=== PATIENT | male | born 1940 | race Caucasian/White ===

== ENCOUNTER 2019-05-24 08:44 | Day surgery (SDC) | payer MEDICARE ==
[2019-05-19 09:43] LABS: ABSOLUTE BASOPHILS # (AUTO) 0.1 10^3/uL (0.0-0.2); ABSOLUTE EOSINOPHILS # (AUTO) 0.1 10^3/uL (0.0-0.6); ABSOLUTE LYMPHOCYTES (AUTO) 0.9 10^3/uL (0.5-4.7); ABSOLUTE MONOCYTES (AUTO) 0.7 10^3/uL (0.1-1.4); ABSOLUTE NEUT (AUTO) 3.9 10^3/uL (1.7-8.2); EOSINOPHILS % (AUTO) 1.6 % (0-6); HEMATOCRIT 47.8 % (37.9-51.0); HEMOGLOBIN 16.4 g/dL (13.5-17.0); LYMPHOCYTES % (AUTO) 16.7 % (13-45); MEAN CORPUSCULAR HEMOGLOBIN 35.9 pg (27.0-33.4); MEAN CORPUSCULAR HGB CONC 34.4 g/dL (32.0-36.0); MEAN CORPUSCULAR VOLUME 105 fl (80-97); MONOCYTES % (AUTO) 11.9 % (3-13); PLATELET COUNT 220 10^3/uL (150-450); RED BLOOD COUNT 4.57 10^6/uL (4.35-5.55); RED CELL DISTRIBUTION WIDTH 14.5 % (11.5-14.0); SEGMENTED NEUTROPHILS % (AUTO) 68.8 % (42-78); TOTAL CELLS COUNTED % (AUTO) 100 %; WHITE BLOOD COUNT 5.7 10^3/uL (4.0-10.5)
[2019-05-19 09:45] LABS: APPEARANCE,URINE CLEAR; BILIRUBIN,URINE NEGATIVE (NEGATIVE); COLOR,URINE YELLOW; GLUCOSE, URINE NEGATIVE (NEGATIVE); KETONES,URINE NEGATIVE (NEGATIVE); LEUKOCYTE ESTERASE,URINE NEGATIVE (NEGATIVE); NITRITE,URINE NEGATIVE (NEGATIVE); PROTEIN,URINE NEGATIVE (NEGATIVE); URINE SPECIFIC GRAVITY 1.012
[2019-05-19 09:47] LABS: INTERNATIONAL RATION (INR) 1.92; PROTHROMBIN TIME 22.3 SEC (11.4-15.4)
[2019-05-19 09:48] LABS: PARTIAL THROMBOPLASTIN TIME 44.5 SEC (23.5-35.8)
--- NOTE | 2019-05-19 13:06 | EKG REPORT ---
SEVERITY:- ABNORMAL ECG - ATRIAL FIBRILLATION RUN OF VENTRICULAR PREMATURE COMPLEXES LOW VOLTAGE IN FRONTAL LEADS BORDERLINE T ABNORMALITIES, INFERIOR LEADS : Confirmed by: Pako Trevino MD 19-May-2019 13:04:54
[2019-05-23 11:43] LABS: ANION GAP 9 (5-19); BLOOD UREA NITROGEN 24 mg/dL (7-20); CALCIUM 9.7 mg/dL (8.4-10.2); CARBON DIOXIDE 28 mmol/L (22-30); CHLORIDE 105 mmol/L (98-107); GLUCOSE 57 mg/dL (75-110); POTASSIUM 4.5 mmol/L (3.6-5.0)
[~2019-05-24 08:44] MED LIST: CEFAZOLIN SODIUM 1 GM in DEXTROSE 5%-WATER 50 ML IV PRN; CLINDAMYCIN 300 MG/D5W RTU 300 MG/50 ML RTUPB IV ONE; CLINDAMYCIN 300 MG/D5W RTU 300 MG/50 ML RTUPB IV PRN; LACTATED RINGERS 1000 ML IV PRN; LIDOCAINE 0.5% INJ-PF (5 MG/ML) 50 ML SDV SUBCUT PRN
[2019-05-24] MEDS ORDERED: MIDAZOLAM 2 MG/2 ML INJ ONE (09:32)
[2019-05-24] MEDS ORDERED: PROPOFOL INJ 200 MG/20 ML VIAL IV ONE ×2 (09:32→11:30)
[2019-05-24] MEDS ORDERED: FENTANYL CITRATE INJ/PF 100 MCG/2 ML AMPUL ONE (09:32)
[2019-05-24] MEDS ORDERED: ONDANSETRON HCL INJ/PF 4 MG/2 ML SDV ONE (09:32)
[2019-05-24] MEDS ORDERED: LIDOCAINE 1% INJ-PF (10 MG/ML) 30 ML SDV ONE ×2 (10:12→11:03)
[2019-05-24] MEDS ORDERED: SODIUM BICARBONATE 8.4% INJ 50 MEQ/50 ML DISP.SYRIN ONE ×2 (10:13→11:04)
[2019-05-24 10:25] LABS: INTERNATIONAL RATION (INR) 1.06; PROTHROMBIN TIME 13.9 SEC (11.4-15.4)
[2019-05-24 10:26] LABS: PARTIAL THROMBOPLASTIN TIME 32.5 SEC (23.5-35.8)
[2019-05-24] MEDS ORDERED: METHYLPREDNISOLONE ACETATE INJ 40 MG/1 ML ML ONE (11:03)
[2019-05-24] MEDS ORDERED: BACITRACIN ZINC OINTMENT 15 GM ONE (11:04)
[2019-05-24] MEDS ORDERED: MORPHINE SULFATE 10 MG/ML INJ IV PRN (12:01)
[2019-05-24] MEDS ORDERED: DIPHENHYDRAMINE HCL 50 MG/ML VIAL IV PRN (12:01)
[2019-05-24] MEDS ORDERED: FENTANYL CITRATE INJ/PF 100 MCG/2 ML AMPUL IV PRN ×3 (12:01)
[2019-05-24] MEDS ORDERED: OXYCODONE-ACETAMINOPHEN 5-325 MG TABLET PO PRN ×3 (12:01→13:13)
[2019-05-24] MEDS ORDERED: MEPERIDINE HCL/PF INJ 25 MG/1 ML DISP.SYRIN IV PRN (12:01)
--- NOTE | 2019-05-24 12:32 | Operative Report ---
Operative Report DATE OF SURGERY: 05/24/19 PREOPERATIVE DIAGNOSIS: L2 vertebral compression fracture POSTOPERATIVE DIAGNOSIS: L2 vertebral compression fracture OPERATION: Kyphoplasty L2 SURGEON: DOROTHY EL ACID CHANGER: SHELLY FRANKEL ANESTHESIA: LMAC TISSUE REMOVED OR ALTERED: None COMPLICATIONS: None ESTIMATED BLOOD LOSS: 5 cc INTRAOPERATIVE FINDINGS: No complications PROCEDURE: DESCRIPTION OF PROCEDURE: The patient was taken to the preoperative suite, informed consent was obtained from the patient, and all appropriate preoperative documentation was completed. Intravenous access was obtained and the patient was moved to the operating room. A time out was performed with the patient, nurse and attending physician present in the operative suite. Prophylactic antibiotics were administered in the form of 300 mg of clindamycin preoperatively and less than one hour before incision. The patient was positioned prone and all pressure points were checked while the patient was awake. Monitored anesthesia care was subsequently induced by the anesthesia care provider. The L2 vertebral body was identified with fluoroscopic guidance. The skin overlying the target area was prepped with chlorhexidine x 3 and sterilely draped in the usual fashion maintaining meticulous sterile technique. Local anesthesia was obtained with a total of 5 ml of preservative free 1% Lidocaine. A stab incision was made 1 cm lateral of the lateral border of right pedicle at the level of the target vertebral body. A 10 gauge trocar was introduced safely through the right pedicle just inside the target vertebral body for a unipedicular approach. The stylet of the trocar was removed and a working cannula was left in place. A drill was then inserted through the right working cannula, advanced under lateral fluoroscopic imaging, to a point just posterior to the anterior v ertebral body wall. The drill was removed and balloon was inserted through the working cannula stopping posterior to the anterior vertebral body wall. The balloon was inflated with radiopaque contrast dye in .5 mL increments. Lateral fluoroscopic images were obtained to confirm balloon inflation did not breach the superior or inferior endplates. A/P fluoroscopic images were obtained periodically to confirm that the lateral betancur were not breached. Inflation of the balloon continued until the desired fracture reduction was achieved. PMMA bone cement was prepared and filled in bone filler cannula. The balloon was deflated and removed. The cement filled cannula was inserted through the working cannula to the anterior portion of the vertebral body. The cement cannula plungers were used to push .2 mL increments of cement into the vertebral body. Lateral fluoroscopic images were obtained at .2 mL increments to verify that the cement did not extravasate. A/P fluoroscopic views were taken at incrementally to verify that the cement did not extravasate laterally. A total of 4 ML of bone cement instilled in unipedicular approach. The bone cement cannula was removed. Lateral fluoroscopic imaging confirmed that no cement migrated posteriorly up the working cannula. The working cannula was removed and pressure was applied to the incision sites until adequate hemostasis was assured. The incision site was then reapproximated with steristrips covered with a sterile adhesive bandage. > COUNTS: > Final sponge and needle counts were correct. > > OPERATING ROOM DISPOSITION: > The patient was taken from the operating room to the recovery room in stable condition. > > FINAL DISPOSITION: > The patient was discharged from the PACU after appropriate discharge criteria were met. > > FOLLOW UP: > The patient is to follow up in clinic in 7 to 10 days.
[2019-05-24] MEDS ORDERED: CLINDAMYCIN PHOSPHATE INJ 300 MG/2 ML SDV ONE (13:07)
[2019-05-24 15:27] VITALS: BP 125/78
--- NOTE | 2019-05-24 17:37 | RADIOLOGY REPORT (SQ) ---
EXAM DESCRIPTION: NO CHG FLUORO; L SPINE 2 VIEWS COMPLETED DATE/TIME: 05/24/2019 4:15 pm REASON FOR STUDY: KYPHOPLASTY ASST WITH FLUORO IN OR COMPARISON: None. FLUOROSCOPY TIME: 2.9 minutes 39 Images saved to PACS LIMITATIONS: None. PROCEDURE: Kyphoplasty FINDINGS: Images from fluoro document the procedure. IMPRESSION: Kyphoplasty. Refer to operative note for further information. COMMENT: PQRS 6045F: Fluoroscopy time of the procedure is documented in the report. TECHNICAL DOCUMENTATION: JOB ID: [id number] [employer]- All Rights Reserved Reading location - IP/workstation name: [email or web address]
--- NOTE | 2019-05-24 17:37 | RADIOLOGY REPORT (SQ) ---
EXAM DESCRIPTION: NO CHG FLUORO; L SPINE 2 VIEWS COMPLETED DATE/TIME: 05/24/2019 4:15 pm REASON FOR STUDY: KYPHOPLASTY ASST WITH FLUORO IN OR COMPARISON: None. FLUOROSCOPY TIME: 2.9 minutes 39 Images saved to PACS LIMITATIONS: None. PROCEDURE: Kyphoplasty FINDINGS: Images from fluoro document the procedure. IMPRESSION: Kyphoplasty. Refer to operative note for further information. COMMENT: PQRS 6045F: Fluoroscopy time of the procedure is documented in the report. TECHNICAL DOCUMENTATION: JOB ID: [id number] [employer]- All Rights Reserved Reading location - IP/workstation name: [email or web address]
== END 2019-05-24 14:30 | disposition home or self-care (01) ==
LOC: OROUT 08:44
PROVIDERS: ATTEND Pain Medicine Interventional Pain Medicine
DX: S32.028G Other fracture of second lumbar vertebra, subsequent encounter for fracture with delayed healing (principal); X58.XXXD Exposure to other specified factors, subsequent encounter; I10 Essential (primary) hypertension; I25.2 Old myocardial infarction; M54.5 Low back pain; I48.91 Unspecified atrial fibrillation; I25.10 Atherosclerotic heart disease of native coronary artery without angina pectoris; J44.9 Chronic obstructive pulmonary disease, unspecified; E03.9 Hypothyroidism, unspecified; Z87.891 Personal history of nicotine dependence; Z79.899 Other long term (current) drug therapy; Z79.01 Long term (current) use of anticoagulants; Z79.51 Long term (current) use of inhaled steroids
CPT/HCPCS: 93005; 36415 ×2; 82962; 85025; 85610 ×2; 85730 ×2; 80048; 81001; 72100; 93010; 01936; 22514; C1713; J2250; J3490 ×4; J3010; J2405; J2704; 1936; J1030